=== PATIENT | male | born 1985 | race Caucasian/White ===

== ENCOUNTER → 2024-02-18 | Day surgery (SDC) | payer BC ==
[~2024-02-18] MED LIST: LIDOCAINE 1% INJ 10MG/ML (20 ML MDV) ONE; PROPOFOL 10 MG/ML 20 ML VIAL IV ONE; fentaNYL (PF) 50 MCG/ML 2 ML AMP ONE
[2024-02-18 13:43] VITALS: PULSE 82; RESP 16; TEMP 96.8
[2024-02-18] MEDS: IV FLUID CONTINUATION 1,000 ML IV ONE ×2 (13:43→14:35)
[2024-02-18] MEDS: LACTATED RINGERS 1,000 ML IV SCH (13:44)
--- NOTE | 2024-02-18 14:59 | P.PCN ---
Date of Procedure: 02/18/24 Procedure(s) Performed: Brief history: Patient is a pleasant 38-year-old white male scheduled for an elective upper endoscopy as well as colonoscopy as a part of evaluation of abdominal pain and chronic diarrhea for last few months duration Procedure performed: Esophagogastroduodenoscopy with biopsy Colonoscopy with biopsy Preoperative diagnosis: Abdominal pain Chronic diarrhea Anesthesia: [facility] [place] Procedure: After informed consent was obtained from the patient was brought into the endoscopy unit and IV sedation was administered by anesthesia under continuous monitoring. Initially upper endoscopy was done. The Olympus GF 160 video endoscope was inserted inserted into the mouth and esophagus intubated without any difficulty and was gradually advanced into the stomach and duodenum and carefully examined. The bulb and second part of the duodenum appeared normal. Biopsies were done from the duodenum to rule out celiac disease. The scope was then withdrawn into the stomach adequately insufflated with air and upon careful examination the antrum mild gastritis and biopsies were done from this area. Mucosa of the body, cardia and fundus appeared normal. The scope was then withdrawn into the esophagus. Mild hiatal hernia noted. The GE junction was located at 40 cm to the incisors. It appeared regular to superficial erosions consistent with LA grade B reflux esophagitis. Rest of the esophagus appeared normal. Patient tolerated the procedure well. At this time the patient continued to remain sedation. Initial digital rectal examination was normal. Olympus CF 160 video colonoscope was then inserted into the rectum and gradually advanced to the cecum without any difficulty. Careful examination was performed as the scope was gradually being withdrawn. The prep was excellent. The cecum, ascending colon, transverse colon, descending colon, sigmoid colon and rectum appeared normal. Biopsies were done from the ascending and descending colon to rule out a collagenous/microscopic colitis. Biopsies were done from the ascending and descending colon to rule out microscopic /collagenous colitis. Retroflexion was performed in the rectum and no lesions were noted. Patient tolerated the procedure well. Impression: 1. Upper endoscopy revealed mild antral gastritis, small hiatal hernia and LA grade B reflux esophagitis 2. Colonoscopy was within normal limits with no evidence of colitis or colorectal neoplasia Recommendations: Findings of this examination were discussed with the patient as well as his family. He was advised to follow-up with the biopsy results. Will be be seen in the office in 2 weeks.
[2024-02-18 15:16] VITALS: BP 117/78
== END ==
LOC: ORWHC2ENDO 12:05
PROVIDERS: ATTEND Internal Medicine Gastroenterology
DX: K29.50 Unspecified chronic gastritis without bleeding (principal); K52.9 Noninfective gastroenteritis and colitis, unspecified; K21.00 Gastro-esophageal reflux disease with esophagitis, without bleeding; K44.9 Diaphragmatic hernia without obstruction or gangrene; G47.33 Obstructive sleep apnea (adult) (pediatric); F32.A Depression, unspecified; F41.9 Anxiety disorder, unspecified; E66.09 Other obesity due to excess calories; Z68.31 Body mass index [BMI] 31.0-31.9, adult; Z98.818 Other dental procedure status; Z79.899 Other long term (current) drug therapy
CPT/HCPCS: 88305; 45380; 43239; J2003; J3010; J2704

== ENCOUNTER → 2024-06-27 | Outpatient (CLI) | payer BC ==
--- NOTE | 2024-06-28 07:09 | MR ---
EXAMINATION TYPE: MR knee RT wo con DATE OF EXAM: 06/27/2024 COMPARISON: Outside right knee x-ray June 02, 2024 HISTORY: Right knee pain and swelling x3-5 years TECHNIQUE: Multiplanar, multisequence images of the knee is performed without IV contrast. FINDINGS: MEDIAL MENISCUS: Anterior and posterior horns are intact without tear. LATERAL MENISCUS: Anterior and posterior horns are intact without tear. CRUCIATE LIGAMENTS: The anterior and posterior cruciate ligaments are intact and unremarkable. COLLATERAL LIGAMENTS: The medial collateral ligament and lateral collateral ligament complex are inta ct and unremarkable. EXTENSOR MECHANISM: Visualized quadriceps and patellar tendons are intact. Areas of increased T2 sign al involving Hoffa's fat pad superior and deep aspects. EFFUSION: No significant suprapatellar joint effusion. POPLITEAL CYST: No popliteal/almaraz cyst. TRICOMPARTMENT SPACES: Moderate to severe narrowing and spurring greatest inferior aspect patellofemo ral compartment. Mild to moderate narrowing and spurring medial and lateral tibiofemoral compartments . CARTILAGE: Significant chondromalacia patella with moderate areas of full-thickness cartilaginous los s noted. BONE MARROW SIGNAL: Heterogeneous increased T2 signal inferior half of the posterior patella. OTHER: No additional significant abnormality is appreciated. IMPRESSION: 1. 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 2. No meniscal or ligamentous tear is seen. [facility], , 06/28/2024 7:07 AM
== END | disposition home or self-care (01) ==
LOC: RADMRIMAIN 18:23
PROVIDERS: ATTEND Orthopaedic Surgery
DX: M17.11 Unilateral primary osteoarthritis, right knee (principal); M22.41 Chondromalacia patellae, right knee; M25.861 Other specified joint disorders, right knee